=== PATIENT | male | born 1980 | race Caucasian/White ===

== ENCOUNTER 2023-06-20 11:35 | Outpatient (OUT) | payer OTHER, SELFPAY ==
--- NOTE | 2023-06-20 11:45 | XR_ITS ---
The [address] [address] Patient Name: ABBIE ARTEAGA MRN: [id number] date: 1980 Sex: M Assigned Patient Location: [facility] Current Patient Location: Accession/Order Number: [id number] Exam Date: 06/20/2023 12:00 Report Date: 06/21/2023 08:37 At the request of: NON-STAFF PHYSICIAN Procedure: XR knee NADEEM 3V EXAMINATION: XR knee NADEEM 3V HISTORY: Patellofemoral syndrome M22.2X1 ; chronic knee pain COMPARISON: No relevant comparison available. FINDINGS: RIGHT FINDINGS: BONES: No significant arthropathy or acute abnormality. SOFT TISSUES: No visible soft tissue swelling. OTHER: Negative. LEFT FINDINGS: BONES: No significant arthropathy or acute abnormality. SOFT TISSUES: No visible soft tissue swelling. OTHER: Negative. XR/XR knee NADEEM 3V IMPRESSION: RIGHT CONCLUSION: Normal examination. LEFT CONCLUSION: Normal examination. Electronically authenticated by: OSVALDO RASCON Date: 06/21/2023 08:37
== END 2023-06-20 11:36 | disposition home or self-care (01) ==
LOC: RAD 11:40
DX: M22.2X1 Patellofemoral disorders, right knee (principal)
CPT/HCPCS: 73562